=== PATIENT | male | born 1970 | race Caucasian/White ===

== ENCOUNTER 2025-03-03 19:59 | Inpatient (IN) | payer MEDICARE, OTHER ==
[~2025-03-03] VITALS: Ht 175.3 cm; Wt 98.4 kg
[2025-03-03] MEDS ORDERED: MAG HYDROX/AL HYDROX/SIMETH 30 ML LIQUID UDC PO PRN (20:30)
[2025-03-03] MEDS ORDERED: MAGNESIUM HYDROXIDE 30 ML LIQUID UDC PO PRN (20:30)
[2025-03-03] MEDS ORDERED: ACETAMINOPHEN 325 MG TABLET PO PRN (20:30)
[2025-03-03] MEDS ORDERED: QUETIAPINE FUMARATE 25 MG TABLET PO PRN (20:30)
[2025-03-03] MEDS: BLOOD SUGAR DIAGNOSTIC 1 EACH STRIP VI ONE (20:35)
[2025-03-03] MEDS: ZOLPIDEM 5 MG TABLET PO PRN ×2 (20:41→22:07)
[2025-03-03] MEDS: QUETIAPINE FUMARATE 25 MG TABLET PO ONE (20:41)
[2025-03-03] MEDS ORDERED: CALC355O18 (21:19)
[2025-03-03] MEDS ORDERED: AMLO10TA4 PO (21:19)
[2025-03-03] MEDS ORDERED: METF-442 PO (21:19)
[2025-03-03] MEDS ORDERED: ATOR40TA PO (21:19)
[2025-03-03] MEDS ORDERED: FERR-56 PO (21:19)
[2025-03-03] MEDS ORDERED: INSU3INS6 SQ (21:19)
[2025-03-03] MEDS ORDERED: QUET25TA PO (21:19)
[2025-03-03] MEDS ORDERED: INSU100V28 SQ (21:19)
[2025-03-03] MEDS ORDERED: QUET300T2 PO (21:19)
[2025-03-03] MEDS ORDERED: TOPI100T PO (21:19)
[2025-03-03] MEDS ORDERED: LITH300T3 PO (21:19)
[2025-03-03] MEDS ORDERED: TEMA15CA5 PO (21:19)
[2025-03-03] MEDS ORDERED: MAGN400O6 PO (21:19)
[2025-03-03] MEDS ORDERED: ACET-2154 PO (21:19)
[2025-03-03] MEDS ORDERED: LORA-259 PO (21:19)
[2025-03-03] MEDS ORDERED: GLUC1KIT IM (21:19)
[2025-03-04 08:06] VITALS: BP 157/95; TEMP 98.2; O2SAT 96
[2025-03-04] MEDS ORDERED: DEXTROSE 50% 50 ML DISP.SYRIN IV PRN (09:30)
[2025-03-04] MEDS ORDERED: MAGNESIUM HYDROXIDE 30 ML LIQUID UDC PO PRN (09:30)
[2025-03-04] MEDS: METFORMIN HCL 500 MG TABLET PO SCH (10:35)
[2025-03-04] MEDS: BLOOD SUGAR DIAGNOSTIC 1 EACH STRIP VI SCH (11:52)
[2025-03-04] MEDS: INSULIN REGULAR, HUMAN 1000 UNIT/10 ML VIAL SQ PRN (11:55)
[2025-03-04] MEDS: FERROUS SULFATE 325 MG TABEC PO SCH (14:23)
[2025-03-04] MEDS: DIVALPROEX 125 MG TABLET.DR PO SCH (14:23)
[2025-03-04 15:14] VITALS: BP 152/86; TEMP 98.2; O2SAT 98
[2025-03-04] MEDS: INSULIN GLARGINE,HUM 300 UNITS/3 ML CARTRIDGE SQ ONE (15:48)
[2025-03-04] MEDS ORDERED: Medication Not On Formulary EA (Metformin Hcl 1,000 MG) PO SCH (17:00)
[2025-03-04] MEDS: risperiDONE-M 0.5 MG TAB.RAPDIS PO SCH (20:58)
[2025-03-04] MEDS: ATORVASTATIN 40 MG TABLET PO SCH (20:59)
[2025-03-04] MEDS: INSULIN REGULAR, HUMAN 300 UNITS/3 ML VIAL SQ PRN (21:40)
[2025-03-05 08:09] LABS: CALCIUM 9.1 mg/dL (8.5-10.1); CREATININE 0.8 mg/dL (0.6-1.3); MAGNESIUM 1.8 mg/dL (1.8-2.4); PHOSPHOROUS 3.2 mg/dL (2.5-4.9); POTASSIUM 4.1 mmol/L (3.5-5.1)
[2025-03-05 08:12] LABS: BASOPHILS # (AUTO) 0.1 K/UL (0.0-0.2); BASOPHILS % (AUTO) 0.7 % (0.0-2.0); EOSINOPHILS # (AUTO) 0.2 K/uL (0.0-0.7); EOSINOPHILS % (AUTO) 2.1 % (0.0-7.0); HEMATOCRIT 42.3 % (36.7-47.1); HEMOGLOBIN 14.4 g/dL (12.5-16.3); LYMPHOCYTES # (AUTO) 2.8 K/uL (0.8-4.8); MEAN CORPUSCULAR HEMOGLOBIN 30.5 uug (23.8-33.4); MEAN CORPUSCULAR HGB CONC 34 g/dL (32.5-36.3); MEAN CORPUSCULAR VOLUME 89.5 fL (73.0-96.2); MONOCYTES # (AUTO) 0.6 K/uL (0.1-1.30); MONOCYTES % (AUTO) 5.6 % (0.0-11.0); NEUTROPHILS # (AUTO) 6.4 K/uL (1.8-8.9); NEUTROPHILS % (AUTO) 63.6 % (38.5-71.5); PLATELET COUNT (AUTO) 277 K/uL (152-348); RED BLOOD CELL COUNT(AUTO) 4.73 MIL/uL (4.06-5.63); WHITE BLOOD COUNT (AUTO) 10.1 K/uL (3.6-10.2)
[2025-03-05 08:13] LABS: DIFFERENTIAL COMMENT 1
[2025-03-05 08:21] LABS: THYROID STIMULATING HORMONE 1.775 mIU/mL (0.358-3.740)
[2025-03-05 08:25] VITALS: BP 151/89; TEMP 98; O2SAT 96
[2025-03-05] MEDS: AMLODIPINE 10 MG TABLET PO SCH (09:39)
[2025-03-05] MEDS: METFORMIN HCL 500 MG TABLET PO SCH (10:00)
[2025-03-05] MEDS: risperiDONE 1 MG TABLET PO ONE (12:35)
[2025-03-05 20:00] VITALS: BP 127/82; TEMP 99; O2SAT 99
[2025-03-05] MEDS: risperiDONE-M 0.5 MG TAB.RAPDIS PO SCH (20:10)
[2025-03-06 08:07] VITALS: BP 142/77; TEMP 98; O2SAT 96
[2025-03-06] MEDS ORDERED: DIVALPROEX 125 MG TABLET.DR PO SCH (14:00)
[2025-03-06] MEDS: DIVALPROEX 250 MG TABLET.DR PO SCH (14:18)
[2025-03-06 20:00] VITALS: BP 131/78; TEMP 97.3; O2SAT 98
[2025-03-06] MEDS: risperiDONE-M 0.5 MG TAB.RAPDIS PO SCH (20:10)
[2025-03-07] MEDS: risperiDONE-M 0.5 MG TAB.RAPDIS PO SCH (08:15)
[2025-03-07 08:38] VITALS: BP 132/69; TEMP 98.2; O2SAT 99
[2025-03-07 15:41] VITALS: BP 102/66; TEMP 98; O2SAT 99
[2025-03-07 20:01] VITALS: BP 125/80; TEMP 98.1; O2SAT 97
[2025-03-08 08:38] VITALS: BP 125/59; TEMP 98; O2SAT 99
[2025-03-08 09:09] LABS: ALBUMIN 3.4 g/dL (3.4-5.0); BILIRUBIN,TOTAL 0.3 mg/dL (0.2-1.0); CALCIUM 9.3 mg/dL (8.5-10.1); CREATININE 0.9 mg/dL (0.6-1.3); POTASSIUM 4.2 mmol/L (3.5-5.1); TOTAL PROTEIN, SERUM 7.3 g/dL (6.4-8.2)
[2025-03-08] MEDS: INSULIN GLARGINE,HUM 300 UNITS/3 ML CARTRIDGE SQ ONE (10:30)
[2025-03-08 16:47] VITALS: BP 128/61; TEMP 98; O2SAT 98
[2025-03-08 20:00] VITALS: BP 136/71; TEMP 98.2; O2SAT 93
[2025-03-08] MEDS: INSULIN GLARGINE,HUM 300 UNITS/3 ML CARTRIDGE SQ SCH (20:44)
[2025-03-09 08:38] VITALS: BP 151/84; TEMP 97.9; O2SAT 97
[2025-03-09 17:26] VITALS: BP 121/72; TEMP 97.7; O2SAT 100
[2025-03-09 19:48] VITALS: BP 127/72; TEMP 97.3; O2SAT 99
[2025-03-10] MEDS: risperiDONE-M 0.5 MG TAB.RAPDIS PO SCH (08:25)
[2025-03-10 08:42] VITALS: BP 130/77; TEMP 98; O2SAT 100
[2025-03-10 20:07] VITALS: BP 126/72; TEMP 98.1; O2SAT 98
[2025-03-10] MEDS: DIVALPROEX 250 MG TABLET.DR PO SCH (20:24)
[2025-03-11] MEDS: DIVALPROEX 500 MG TABLET.DR PO SCH (08:49)
[2025-03-11] MEDS ORDERED: DIVALPROEX 125 MG TABLET.DR PO SCH (09:00)
[2025-03-11 09:03] VITALS: BP 98/61; TEMP 97.5; O2SAT 95
[2025-03-11] MEDS ORDERED: DEXTROSE 50% 50 ML DISP.SYRIN IV PRN (12:15)
[2025-03-11 16:26] VITALS: BP 106/61; TEMP 98.4; O2SAT 82
[2025-03-11] MEDS: BLOOD SUGAR DIAGNOSTIC 1 EACH STRIP VI SCH (16:52)
[2025-03-11] MEDS: INSULIN REGULAR, HUMAN 1000 UNIT/10 ML VIAL SQ PRN (16:54)
[2025-03-11 20:25] VITALS: BP 131/77; TEMP 98.1; O2SAT 98
[2025-03-11] MEDS: INSULIN REGULAR, HUMAN 300 UNITS/3 ML VIAL SQ PRN (21:46)
[2025-03-12 07:30] VITALS: BP 136/69; TEMP 98; O2SAT 99
[2025-03-12 15:53] VITALS: BP 147/95; TEMP 98; O2SAT 98
[2025-03-12 19:51] VITALS: BP 142/76; TEMP 98.1; O2SAT 98
[2025-03-13 09:19] VITALS: BP 152/79; TEMP 98; O2SAT 98
[2025-03-13] MEDS: OLANZAPINE ZYDIS 5 MG TAB.RAPDIS PO ONE ×2 (09:48→17:45)
[2025-03-13 15:51] VITALS: BP 137/92; TEMP 98; O2SAT 99
[2025-03-13 20:00] VITALS: BP 111/80; TEMP 98.6; O2SAT 99
[2025-03-13] MEDS: risperiDONE-M 0.5 MG TAB.RAPDIS PO SCH (20:23)
[2025-03-14] MEDS: risperiDONE-M 0.5 MG TAB.RAPDIS PO SCH (08:42)
[2025-03-14 09:30] VITALS: BP 135/87; TEMP 98; O2SAT 99
[2025-03-14 15:31] VITALS: BP 112/67; TEMP 98; O2SAT 98
[2025-03-15 08:40] VITALS: BP 140/86; TEMP 97.7; O2SAT 98
[2025-03-15 16:47] VITALS: BP 136/80; TEMP 98; O2SAT 93
[2025-03-16 08:30] VITALS: BP 131/86; TEMP 98.1; O2SAT 98
== END 2025-03-16 13:45 | DRG 885 ==
LOC: GPS 20:00
PROVIDERS: ADMIT Psychiatry & Neurology Psychiatry; ATTEND Student in an Organized Health Care Education/Training Program
DX: F29 Unspecified psychosis not due to a substance or known physiological condition (principal); E11.65 Type 2 diabetes mellitus with hyperglycemia; G93.40 Encephalopathy, unspecified; F25.9 Schizoaffective disorder, unspecified; E11.9 Type 2 diabetes mellitus without complications; E78.5 Hyperlipidemia, unspecified; I10 Essential (primary) hypertension; Z79.899 Other long term (current) drug therapy; F41.9 Anxiety disorder, unspecified; F39 Unspecified mood [affective] disorder
CPT/HCPCS: 36415; 80164; 83735; 84100; 84443; 85025; J1815; J3490